=== PATIENT | female | born 1955 | race Caucasian/White ===

== ENCOUNTER 2020-07-23 08:33 | Outpatient (CLI) | payer OTHER | END 2020-07-23 08:51 | disposition home or self-care (01) | LOC: SONOGRAMA 08:33 → EDBD 08:33 → SONOGRAMA 08:51 | PROVIDERS: ATTEND Surgery | DX: D24.1 Benign neoplasm of right breast (principal); N60.11 Diffuse cystic mastopathy of right breast; N60.12 Diffuse cystic mastopathy of left breast; R92.0 Mammographic microcalcification found on diagnostic imaging of breast ==

== ENCOUNTER 2021-05-17 08:00 | Outpatient (CLI) | payer OTHER | END 2021-05-17 08:30 | disposition home or self-care (01) | LOC: PPH VACUNA 08:00 | PROVIDERS: ATTEND Emergency Medicine Pediatric Emergency Medicine | DX: Z23 Encounter for immunization (principal) ==

== ENCOUNTER 2022-05-29 11:54 | Outpatient (CLI) | payer OTHER | END 2022-05-29 12:04 | disposition home or self-care (01) | LOC: LAB 11:54 | PROVIDERS: ATTEND Surgery | DX: N18.9 Chronic kidney disease, unspecified (principal) ==

== ENCOUNTER 2022-07-21 05:15 | Day surgery (SDC) | payer OTHER ==
[~2022-07-21] VITALS: Ht 162.6 cm; Wt 59.0 kg
== END 2022-07-21 22:40 | disposition home or self-care (01) ==
LOC: CIR.AMB 05:15
PROVIDERS: ATTEND Surgery
DX: D24.1 Benign neoplasm of right breast (principal); N60.91 Unspecified benign mammary dysplasia of right breast; N60.21 Fibroadenosis of right breast; N60.82 Other benign mammary dysplasias of left breast; N60.92 Unspecified benign mammary dysplasia of left breast; N60.22 Fibroadenosis of left breast; N60.32 Fibrosclerosis of left breast; R92.0 Mammographic microcalcification found on diagnostic imaging of breast
CPT/HCPCS: 19301; 19281; 19282; L8600

== ENCOUNTER 2023-01-19 06:00 | Day surgery (SDC) | payer OTHER ==
[~2023-01-19] VITALS: Ht 162.6 cm; Wt 59.0 kg
[~2023-01-19 06:00] MED LIST: TAMOXIFEN CITRA10 MG PO
== END 2023-01-19 13:40 | disposition home or self-care (01) ==
LOC: CIR.AMB 06:00
PROVIDERS: ATTEND Specialist
DX: D28.0 Benign neoplasm of vulva (principal); Z20.822 Contact with and (suspected) exposure to COVID-19; Z85.3 Personal history of malignant neoplasm of breast

== ENCOUNTER → 2023-05-03 | Outpatient (CLI) | payer OTHER | END | disposition home or self-care (01) | LOC: SONOGRAMA 14:06 | PROVIDERS: ATTEND Surgery | DX: R22.2 Localized swelling, mass and lump, trunk (principal) ==